=== PATIENT | male | born 1965 | race Caucasian/White ===

== ENCOUNTER 2020-07-25 09:07 | Emergency (ER) | payer OTHER ==
[~2020-07-25] VITALS: Ht 188 cm; Wt 116.0 kg
[2020-07-25 09:36] VITALS: BP 121/73
--- NOTE | 2020-07-25 10:23 | NUR ---
PT GIVEN ICE PACK TO LEFT ANKLE
[2020-07-25] MEDS ORDERED: HYDR-3965 PO (10:50)
[2020-07-25] MEDS ORDERED: ONDA4TAB6 PO (10:50)
[2020-08-08] MEDS ORDERED: IBUP-1984 PO (13:47)
[2020-08-08] MEDS ORDERED: LOSA50TA3 PO (13:47)
[2020-08-08] MEDS ORDERED: METO-539 PO (13:47)
[2020-08-08] MEDS ORDERED: INSU100V12 SQ (13:47)
[2020-08-08] MEDS ORDERED: ASPI-1265 PO (13:47)
[2020-08-08] MEDS ORDERED: ACET-1025 PO (13:47)
[2020-08-08] MEDS ORDERED: AMLO2.5T2 PO ×2 (13:47→13:48)
[2020-08-08] MEDS ORDERED: TERA1CAP4 PO (13:47)
[2020-08-08] MEDS ORDERED: ATOR40TA PO (13:47)
[2020-08-08] MEDS ORDERED: TIOT18CA3 (13:49)
[2020-08-08] MEDS ORDERED: BUDE10.2 INH (13:49)
== END 2020-07-25 11:35 | disposition home or self-care (01) ==
LOC: ER 09:07
DX: S82.832A Other fracture of upper and lower end of left fibula, initial encounter for closed fracture (principal); S93.402A Sprain of unspecified ligament of left ankle, initial encounter; F17.200 Nicotine dependence, unspecified, uncomplicated; M25.572 Pain in left ankle and joints of left foot; Z79.899 Other long term (current) drug therapy; W18.39XA Other fall on same level, initial encounter; Y93.89 Activity, other specified; Y92.89 Other specified places as the place of occurrence of the external cause; Y99.8 Other external cause status
CPT/HCPCS: 29515; 73610; 99283

== ENCOUNTER 2020-08-11 08:07 | Day surgery (SDC) | payer OTHER ==
[2020-08-08 14:04] LABS: BASOPHILS # (AUTO) 0.1 X10'3 (0-0.2); BASOPHILS % (AUTO) 0.9 % (0-1); EOSINOPHILS # (AUTO) 0.3 X10'3 (0-0.9); NEUTROPHILS # (AUTO) 7.2 X10'3 (1.8-7.7); PRE OP HEMOGLOBIN 14.8 g/dL (14.0-17.9)
[2020-08-08 14:05] LABS: EOSINOPHILS % (AUTO) 2.9 % (0-6); LYMPHOCYTES # (AUTO) 2.1 X10'3 (1.1-4.8); LYMPHOCYTES % (AUTO) 19.7 % (21-51); MEAN CORPUSCULAR HEMOGLOBIN 28.4 PG (27.0-31.0); MEAN CORPUSCULAR HGB CONC 33.3 g/dL (33.0-36.5); MEAN CORPUSCULAR VOLUME 85.3 FL (78-98); MONOCYTES # (AUTO) 0.9 X10'3 (0-0.9); MONOCYTES % (AUTO) 8.3 % (2-12); NEUTROPHILS % (AUTO) 68.2 % (42-75); PRE OP HEMATOCRIT 44.4 % (42.0-52.0); RED CELL DISTRIBUTION WIDTH 15.8 % (11.5-14.5)
[2020-08-08 14:08] LABS: ALBUMIN 3.6 G/DL (3.4-5.0); ALBUMIN/GLOBULIN RATIO 0.9 (1.1-1.5); ALKALINE PHOSPHATASE 64 IU/L (46-116); BLOOD UREA NITROGEN 26 MG/DL (7-18); BUN/CREATININE RATIO 21.1 (5.4-32.0); CALCIUM 9.5 MG/DL (8.5-10.1); CHLORIDE 101 MMOL/L (99-107); CREATININE 1.23 MG/DL (0.60-1.10); PRE OP ALT 35 U/L (30-65); PRE OP ANION GAP 10 (8-16); PRE OP BILIRUB, TOTAL 0.6 MG/DL (0.0-1.0); PRE OP GLUCOSE 160 MG/DL (70-104); PRE OP SODIUM 138 MMOL/L (135-145); TOTAL CARBON DIOXIDE 26.8 MMOL/L (24-32); TOTAL PROTEIN 7.5 G/DL (6.4-8.2); eGFR 61 ML/MIN
[2020-08-08 14:11] LABS: PRE OP AST 29 U/L (10-37); PRE OP POTASSIUM 3.6 MMOL/L (3.4-5.1)
[2020-08-08 14:13] LABS: CLARITY,URINE CLEAR (Clear); COLOR,URINE YELLOW (Yellow); GLUCOSE, URINE NEGATIVE (Neg); KETONES,URINE NEGATIVE (Neg); LEUKOCYTE ESTERASE ,URINE NEGATIVE (Neg); NITRITES, URINE NEGATIVE (Neg); OCCULT BLOOD,URINE NEGATIVE (Neg); PROTEIN,URINE NEGATIVE (Neg)
[2020-08-08 14:19] LABS: UA COLLECTION TYPE VOIDED
[~2020-08-11] VITALS: Ht 188 cm; Wt 113.7 kg
[2020-08-11] VITALS (10 sets, daily range): BP systolic 120–132; BP diastolic 74–91
[~2020-08-11 08:07] MED LIST: ACET-1025 PO; AMLO2.5T2 PO; ASPI-1265 PO; ATOR40TA PO; BUDE10.2 INH; DOCUMENT DATE & TIME OF BETA-BLOCKER PO ONE; IBUP-1984 PO; INSU100V12 SQ; LOSA50TA3 PO; METO-539 PO; TERA1CAP4 PO; TIOT18CA3; albuterol 2.5 MG/3 ML nebule NEB ONE; ceFAZolin 2gm in dextrose, iso 50 ML IV ONE; famotidine 20mg tablet PO ONE; ringers solution, lacted 1,000 ML IV SCH
[2020-08-11] MEDS ORDERED: cloNIDine hcl/PF 100mcg/ml inj ONE (09:05)
[2020-08-11] MEDS ORDERED: bacitracin 15gm ointment TP ONE (09:10)
[2020-08-11] MEDS ORDERED: meperidine/PF 25mg/ml syringe IV PRN ×6 (10:15)
[2020-08-11] MEDS ORDERED: ringers solution, lacted 1,000 ML IV SCH ×2 (10:15)
[2020-08-11] MEDS ORDERED: proCHLORperazine 10 MG/2 ml inj IV PRN ×2 (10:15)
[2020-08-11] MEDS ORDERED: ondansetron/PF 4mg/2ml inj IV PRN ×2 (10:15)
[2020-08-11] MEDS ORDERED: morphine 2 MG/ML inj. syringe IV PRN ×2 (10:15)
[2020-08-11] MEDS ORDERED: morphine 4 MG/ML inj SYRINge IV PRN ×2 (10:15)
[2020-08-11] MEDS ORDERED: acetaminophen 1,000mg/100ml IV 100 ML IV PRN ×2 (10:15)
[2020-08-11] MEDS ORDERED: midazolam 2 mg/2 ml injection ONE (11:19)
[2020-08-11] MEDS ORDERED: sevoflurane 250ml liquid IH ONE (11:22)
[2020-08-11] MEDS ORDERED: ondansetron/PF 4mg/2ml inj ONE (11:22)
[2020-08-11] MEDS ORDERED: fentaNYL /PF 50mcg/ml 5ml ampule ONE (11:23)
[2020-08-11] MEDS ORDERED: ROPIVAcaine 0.5% (5mg/ml) 30ml vial ONE (11:55)
[2020-08-11] MEDS ORDERED: dexamethasone sod phosphate 4mg/ml inj. ONE (11:55)
[2020-08-11] MEDS ORDERED: LIDOcaine 2% (20mg/ml) 5ml vial ONE (11:55)
[2020-08-11] MEDS ORDERED: 0.9 % SODIUM CHLORIDE 10 ML VIAL ONE (11:55)
[2020-08-11] MEDS ORDERED: propofol inj 20 ML IV ONE (11:55)
[2020-08-11] MEDS ORDERED: ePHEDrine 50MG/ML INJ. ONE (12:29)
--- NOTE | 2020-08-11 13:15 | NUR ---
Received from OR via BED, accompanied by Anesthesiologist DR HAMILTON-- and report given by Anesthesiolgist. PATIENT A&OX4, DENIES PAIN, V/S WNL, NEUROVASCULAR CHECKS INTACT, 20G PIV RUE, SCD ON, DRESSING SPLINT TO LLE ANKLE CDI AND ELEVATED
--- NOTE | 2020-08-11 14:35 | NUR ---
PATIENT A&OX4, DENIES PAIN, V/S WNL, NEUROVASCULAR CHECKS INTACT, 20G PIV RUE D/C, SCD OFF, DRESSING SPLINT TO LLE ANKLE CDI AND ELEVATED. I HAVE REVIEWED D/C INSTRUCTIONS WITH PATIENT AND FAMILY AND THEY HAVE VERBALIZED UNDERSTANDING. PATIENT D/C HOME WITH ALL BELONGINGS AND FAMILY GAVE TRANSPORT HOME.
== END 2020-08-11 14:35 | disposition home or self-care (01) ==
LOC: PAS 08:07
PROVIDERS: ATTEND Podiatrist Foot & Ankle Surgery
DX: S82.852A Displaced trimalleolar fracture of left lower leg, initial encounter for closed fracture (principal); J44.9 Chronic obstructive pulmonary disease, unspecified; I10 Essential (primary) hypertension; E11.9 Type 2 diabetes mellitus without complications; N40.0 Benign prostatic hyperplasia without lower urinary tract symptoms; G89.18 Other acute postprocedural pain; Z79.4 Long term (current) use of insulin; Z79.899 Other long term (current) drug therapy; Z79.82 Long term (current) use of aspirin; Z98.41 Cataract extraction status, right eye; Z98.42 Cataract extraction status, left eye; Z87.891 Personal history of nicotine dependence; Z20.828 Contact with and (suspected) exposure to other viral communicable diseases; X58.XXXA Exposure to other specified factors, initial encounter; Y93.89 Activity, other specified; Y92.89 Other specified places as the place of occurrence of the external cause; Y99.8 Other external cause status
CPT/HCPCS: 27695; 27792; 36415; 64445; 64447; 71046; 73610; 76000; 76942; 80053; 81003; 82948; 85025; 87635; 93005; A6223; C1713; J0735; J1100; J2001; J2250; J2405; J2704; J3010; J3370; A4215; A4618; A6253; A6449; A7000; J2795; J7120

== ENCOUNTER 2021-05-26 10:32 | Emergency (ER) | payer OTHER ==
[~2021-05-26] VITALS: Ht 188 cm; Wt 113.0 kg
[~2021-05-26 10:32] MED LIST changes: -DOCUMENT DATE & TIME OF BETA-BLOCKER PO ONE; -albuterol 2.5 MG/3 ML nebule NEB ONE; -ceFAZolin 2gm in dextrose, iso 50 ML IV ONE; -famotidine 20mg tablet PO ONE; -ringers solution, lacted 1,000 ML IV SCH
[2021-05-26 13:06] VITALS: BP 134/95
[2021-05-26] MEDS ORDERED: iohexol 300mg/ml 100ml inj. ONE (13:20)
== END 2021-05-26 14:22 | disposition home or self-care (01) ==
LOC: ER 10:32
DX: R07.81 Pleurodynia (principal); V87.7XXA Person injured in collision between other specified motor vehicles (traffic), initial encounter; Y93.89 Activity, other specified; Y92.89 Other specified places as the place of occurrence of the external cause; Y99.8 Other external cause status
CPT/HCPCS: 71045; 71260; 74176; 99285; Q9967